=== PATIENT | male | born 1970 | race Caucasian/White ===

== ENCOUNTER 2017-02-27 12:37 | Emergency (ER) | payer MEDICAID ==
[~2017-02-27] VITALS: Ht 188 cm; Wt 93.2 kg
[2017-02-27] MEDS ORDERED: CEPHALEXIN MONOHYDRATE 500 MG CAPSULE PO ONE (14:30)
[2017-02-27] MEDS ORDERED: TraMADol HCL 50 MG TABLET PO ONE (14:30)
[2017-02-27] MEDS ORDERED: SILVER SULFADIAZINE 1% 25 GM CREAM TP ONE (14:30)
[2017-02-27] MEDS ORDERED: SULFAMETHOX/TRIMETH DS 800-160 MG/TABLET PO ONE (14:30)
[2017-02-27] MEDS ORDERED: PERTUSS(ACELL),DIPH,TET VAC/PF 0.5 ML VIAL IM ONE (14:45)
[2017-02-27 15:20] VITALS: BP 122/77
== END 2017-02-27 15:21 | disposition home or self-care (01) ==
LOC: EMS 12:38
DX: T23.221A Burn of second degree of single right finger (nail) except thumb, initial encounter (principal); F17.210 Nicotine dependence, cigarettes, uncomplicated; F19.10 Other psychoactive substance abuse, uncomplicated; Z88.8 Allergy status to other drugs, medicaments and biological substances; X16.XXXA Contact with hot heating appliances, radiators and pipes, initial encounter; Y93.89 Activity, other specified; Y92.89 Other specified places as the place of occurrence of the external cause; Y99.8 Other external cause status
CPT/HCPCS: 16020; 90471; 90715; 99284; 99406; Z7610

== ENCOUNTER 2017-03-02 19:10 | Emergency (ER) | payer MEDICAID ==
[~2017-03-02] VITALS: Ht 188 cm; Wt 95.5 kg
[2017-03-02 19:57] LABS: BASOPHILS % (AUTO) 0.4 % (0.0-2.0); EOSINOPHILS % (AUTO) 3.3 % (1.0-6.0); HEMOGLOBIN 16.6 g/dL (13.5-17.5); LYMPHOCYTES % (AUTO) 25.5 % (22.0-44.0); MEAN CORPUSCULAR HGB CONC 34.6 G/dL (31.0-37.0); MEAN CORPUSCULAR VOLUME 89 fL (80-100); MONOCYTES # (AUTO) 0.5 K/uL (0.1-1.0); MONOCYTES % (AUTO) 5.8 % (2.0-9.0); NEUTROPHILS # (AUTO) 5.1 K/uL (1.8-7.7); PLATELET COUNT (AUTO) 223 K/uL (150-450); RED BLOOD CELL COUNT(AUTO) 5.36 MIL/uL (4.50-5.90); RED CELL DISTRIBUTION WIDTH 13.5 % (11.5-14.5); WHITE BLOOD COUNT (AUTO) 7.8 K/uL (4.5-11.0)
[2017-03-02 20:07] LABS: ANION GAP 8 mmol/L (8-16); CALCIUM, TOTAL 8.8 mg/dL (8.8-10.5); CARBON DIOXIDE 28 mmol/L (22-29); CHLORIDE 104 mmol/L (98-107); CREATININE 1.17 mg/dL (0.60-1.30); GLOMERULAR FILTR. RATE CALC > 60 mL/min (>60); SODIUM SERUM 140 mmol/L (136-145); UREA NITROGEN, BLOOD 12 mg/dL (7-18)
[2017-03-02 20:13] LABS: ALANINE AMINOTRANSFERASE 25 U/L (12-78); ALBUMIN 3.5 g/dL (3.4-5.0); ASPARTATE AMINOTRANSFERASE 14 U/L (15-37); BILIRUBIN,TOTAL 0.4 mg/dL (0.1-1.0); TOTAL PROTEIN, SERUM 7.3 g/dL (6.4-8.2)
[2017-03-02] MEDS ORDERED: LORazepam 2 MG TABLET PO ONE (23:15)
[2017-03-02] MEDS ORDERED: QUEtiapine FUMARATE 100 MG TABLET PO ONE (23:15)
[2017-03-03 05:21] VITALS: BP 126/68
== END 2017-03-03 05:22 | disposition home or self-care (01) ==
LOC: EMS 19:11 → EEVIPCON 19:11 → EMS 03-03 05:22
DX: F22 Delusional disorders (principal); F19.10 Other psychoactive substance abuse, uncomplicated; F17.210 Nicotine dependence, cigarettes, uncomplicated; Z88.8 Allergy status to other drugs, medicaments and biological substances
CPT/HCPCS: 99284; G0480

== ENCOUNTER 2017-03-06 05:03 | Emergency (ER) | payer MEDICAID ==
[~2017-03-06] VITALS: Ht 188 cm; Wt 95.5 kg
[2017-03-06 05:51] LABS: BASOPHILS # (AUTO) 0.07 K/uL (0.00-0.20); EOSINOPHILS # (AUTO) 0.14 K/uL (0.00-0.70); EOSINOPHILS % (AUTO) 2.07 % (1.0-6.0); HEMATOCRIT 51.2 % (41-53); HEMOGLOBIN 17.4 g/dL (13.5-17.5); LYMPHOCYTES # (AUTO) 1.7 K/uL (1.0-4.8); LYMPHOCYTES % (AUTO) 24.9 % (22.0-44.0); MEAN CORPUSCULAR HEMOGLOBIN 30.7 pg (26.0-34.0); MEAN CORPUSCULAR VOLUME 90 fL (80-100); MONOCYTES # (AUTO) 0.4 K/uL (0.1-1.0); MONOCYTES % (AUTO) 5.4 % (2.0-9.0); NEUTROPHILS # (AUTO) 4.4 K/uL (1.8-7.7); NEUTROPHILS % (AUTO) 66.6 % (40.0-70.0); PLATELET COUNT (AUTO) 206 K/uL (150-450); RED BLOOD CELL COUNT(AUTO) 5.69 MIL/uL (4.50-5.90); RED CELL DISTRIBUTION WIDTH 13.5 % (11.5-14.5); WHITE BLOOD COUNT (AUTO) 6.6 K/uL (4.5-11.0)
[2017-03-06 06:07] LABS: ANION GAP 8 mmol/L (8-16); CALCIUM, TOTAL 8.7 mg/dL (8.8-10.5); CARBON DIOXIDE 28 mmol/L (22-29); CHLORIDE 100 mmol/L (98-107); CREATININE 1.14 mg/dL (0.60-1.30); GLOMERULAR FILTR. RATE CALC > 60 mL/min (>60); POTASSIUM 3.7 mmol/L (3.5-5.1); SODIUM SERUM 136 mmol/L (136-145); UREA NITROGEN, BLOOD 10 mg/dL (7-18)
[2017-03-06 06:12] LABS: ALANINE AMINOTRANSFERASE 21 U/L (12-78); ALBUMIN 3.6 g/dL (3.4-5.0); ASPARTATE AMINOTRANSFERASE 14 U/L (15-37); TOTAL PROTEIN, SERUM 7.2 g/dL (6.4-8.2)
[2017-03-06] MEDS ORDERED: HydrOXYzine PAMOATE 50 MG CAPSULE PO ONE (06:30)
[2017-03-06 07:11] VITALS: BP 121/83
== END 2017-03-06 07:13 | disposition home or self-care (01) ==
LOC: EMS 05:03
DX: F41.9 Anxiety disorder, unspecified (principal); F12.10 Cannabis abuse, uncomplicated; F15.10 Other stimulant abuse, uncomplicated; F17.210 Nicotine dependence, cigarettes, uncomplicated; F31.9 Bipolar disorder, unspecified; F20.9 Schizophrenia, unspecified; Z88.8 Allergy status to other drugs, medicaments and biological substances
CPT/HCPCS: 36415; 80053; 80307; 85025; 99284; 99406; G0480

== ENCOUNTER 2017-06-24 16:35 | Emergency (ER) | payer MEDICAID ==
[~2017-06-24] VITALS: Ht 188 cm; Wt 79.5 kg
[2017-06-24 17:35] LABS: BASOPHILS % (AUTO) 0.8 % (0.0-2.0); EOSINOPHILS % (AUTO) 2.4 % (1.0-6.0); HEMATOCRIT 51.6 % (41-53); HEMOGLOBIN 17.6 g/dL (13.5-17.5); LYMPHOCYTES # (AUTO) 1.9 K/uL (1.0-4.8); LYMPHOCYTES % (AUTO) 24.3 % (22.0-44.0); MEAN CORPUSCULAR HEMOGLOBIN 30.1 pg (26.0-34.0); MEAN CORPUSCULAR HGB CONC 34.1 G/dL (31.0-37.0); MEAN CORPUSCULAR VOLUME 88 fL (80-100); MONOCYTES # (AUTO) 0.5 K/uL (0.1-1.0); MONOCYTES % (AUTO) 6.5 % (2.0-9.0); NEUTROPHILS # (AUTO) 5.2 K/uL (1.8-7.7); PLATELET COUNT (AUTO) 179 K/uL (150-450); RED BLOOD CELL COUNT(AUTO) 5.85 MIL/uL (4.50-5.90); RED CELL DISTRIBUTION WIDTH 14.4 % (11.5-14.5)
[2017-06-24 17:50] LABS: ANION GAP 11 mmol/L (8-16); CALCIUM, TOTAL 9.4 mg/dL (8.8-10.5); CARBON DIOXIDE 25 mmol/L (22-29); CHLORIDE 102 mmol/L (98-107); CREATININE 1.12 mg/dL (0.60-1.30); GLOMERULAR FILTR. RATE CALC > 60 mL/min (>60); GLUCOSE,RANDOM 112 mg/dL (70-110); POTASSIUM 3.7 mmol/L (3.5-5.1); SODIUM SERUM 138 mmol/L (136-145); UREA NITROGEN, BLOOD 16 mg/dL (7-18)
[2017-06-24 17:58] LABS: ALANINE AMINOTRANSFERASE 20 U/L (12-78); ALBUMIN 3.9 g/dL (3.4-5.0); ALKALINE PHOSPHATASE 90 U/L (46-116); ASPARTATE AMINOTRANSFERASE 13 U/L (15-37); BILIRUBIN,TOTAL 0.8 mg/dL (0.1-1.0); TOTAL PROTEIN, SERUM 7.4 g/dL (6.4-8.2)
[2017-06-24] MEDS ORDERED: LORazepam 1 MG TABLET PO ONE (20:15)
[2017-06-24 20:39] VITALS: BP 110/70
== END 2017-06-24 20:41 | disposition home or self-care (01) ==
LOC: EMS 16:36
DX: F15.10 Other stimulant abuse, uncomplicated (principal); F41.9 Anxiety disorder, unspecified; F31.9 Bipolar disorder, unspecified; F20.9 Schizophrenia, unspecified; F17.210 Nicotine dependence, cigarettes, uncomplicated; F12.90 Cannabis use, unspecified, uncomplicated; F19.90 Other psychoactive substance use, unspecified, uncomplicated; Z91.14 Patient's other noncompliance with medication regimen; Z88.8 Allergy status to other drugs, medicaments and biological substances
CPT/HCPCS: 36415; 80053; 85025; 99284; 99406; G0480

== ENCOUNTER 2018-03-31 07:37 | Inpatient (IN) | payer MEDICAID ==
[~2018-03-31] VITALS: Ht 188 cm; Wt 85.3 kg
[2018-03-31 08:29] LABS: BASOPHILS % (AUTO) 0.5 % (0.0-2.0); EOSINOPHILS % (AUTO) 1.4 % (1.0-6.0); HEMATOCRIT 47.3 % (41-53); HEMOGLOBIN 16.6 g/dL (13.5-17.5); LYMPHOCYTES # (AUTO) 1.3 K/uL (1.0-4.8); LYMPHOCYTES % (AUTO) 14.5 % (22.0-44.0); MEAN CORPUSCULAR HEMOGLOBIN 31.3 pg (26.0-34.0); MEAN CORPUSCULAR VOLUME 89 fL (80-100); MONOCYTES # (AUTO) 0.6 K/uL (0.1-1.0); NEUTROPHILS # (AUTO) 7.2 K/uL (1.8-7.7); NEUTROPHILS % (AUTO) 77.6 % (40.0-70.0); PLATELET COUNT (AUTO) 280 K/uL (150-450); RED CELL DISTRIBUTION WIDTH 13.6 % (11.5-14.5)
[2018-03-31 08:38] LABS: ANION GAP 10 mmol/L (8-16); CALCIUM, TOTAL 9.7 mg/dL (8.8-10.5); CARBON DIOXIDE 24 mmol/L (22-29); CHLORIDE 107 mmol/L (98-107); CREATININE 1.21 mg/dL (0.60-1.30); GLOMERULAR FILTR. RATE CALC > 60 mL/min (>60); GLUCOSE,RANDOM 114 mg/dL (70-110); SODIUM SERUM 141 mmol/L (136-145); UREA NITROGEN, BLOOD 14 mg/dL (7-18)
[2018-03-31 08:44] LABS: ALANINE AMINOTRANSFERASE 26 U/L (12-78); ALBUMIN 3.7 g/dL (3.4-5.0); ALKALINE PHOSPHATASE 78 U/L (46-116); ASPARTATE AMINOTRANSFERASE 22 U/L (15-37); BILIRUBIN,TOTAL 0.7 mg/dL (0.1-1.0); TOTAL PROTEIN, SERUM 7.3 g/dL (6.4-8.2)
[2018-03-31] MEDS ORDERED: LORazepam 2 MG TABLET PO ONE (08:45)
[2018-03-31] MEDS ORDERED: DiphenhydrAMINE HCL 25 MG CAPSULE PO ONE (08:45)
[2018-03-31] MEDS ORDERED: OLANZapine 5 MG TABLET PO ONE (08:45)
[2018-03-31] MEDS ORDERED: QUEtiapine FUMARATE 100 MG TABLET PO PRN (09:00)
[2018-03-31] MEDS ORDERED: ZOLPIDEM TARTRATE 10 MG TABLET PO PRN (09:00)
[2018-03-31 10:14] LABS: AMPHET/METH SCREEN,URINE NEGATIVE (NEGATIVE); BARBITURATE SCREEN, URINE NEGATIVE (NEGATIVE); BENZODIAZEPINES SCREEN,URINE NEGATIVE (NEGATIVE); CANNABINOID SCREEN,URINE POSITIVE (NEGATIVE); COCAINE SCREEN,URINE NEGATIVE (NEGATIVE); METHADONE SCREEN, URINE NEGATIVE (NEGATIVE); OPIATE SCREEN,URINE NEGATIVE (NEGATIVE)
[2018-03-31 10:15] LABS: PHENCYCLIDINE SCREEN,URINE NEGATIVE (NEGATIVE)
[2018-03-31] MEDS ORDERED: QUEtiapine FUMARATE 25 MG TABLET PO PRN (13:00)
[2018-03-31] MEDS ORDERED: LORazepam 2 MG/ML VIAL ONE (14:34)
[2018-03-31] MEDS ORDERED: DiphenhydrAMINE HCL 50 MG/ML VIAL ONE (14:34)
[2018-03-31] MEDS ORDERED: DiphenhydrAMINE HCL 50 MG/ML VIAL IM ONE (15:00)
[2018-03-31] MEDS ORDERED: FluPHENAZine HCL 2.5 MG/ML INJ IM ONE (15:00)
[2018-03-31] MEDS ORDERED: LORazepam 2 MG/ML VIAL IM ONE (15:00)
[2018-03-31] MEDS: OLANZapine 10 MG RAPDIS TABLET PO SCH (16:44)
[2018-03-31 16:45] VITALS: BP 144/81
[2018-03-31] MEDS: LORazepam 2 MG TABLET PO PRN (16:45)
[2018-03-31] MEDS ORDERED: CloNIDine HCL 0.1 MG TABLET PO PRN (18:15)
[2018-03-31] MEDS ORDERED: NICOTINE 14 MG/24 HOUR PATCH TD PRN (18:15)
[2018-03-31] MEDS ORDERED: DOCUSATE SODIUM 100 MG CAPSULE PO PRN (18:15)
[2018-03-31] MEDS ORDERED: ONDANSETRON HCL 4 MG TABLET PO PRN (18:15)
[2018-03-31] MEDS ORDERED: MAG HYDROX/AL HYDROX/SIMETH ES 30 ML SUSPENSION UDCUP PO PRN (18:15)
[2018-03-31] MEDS ORDERED: ALBUTEROL SULFATE HFA 90 MCG/PUFF 8 GM INHALER IH PRN (18:15)
[2018-03-31] MEDS ORDERED: IBUPROFEN 400 MG TABLET PO PRN (18:15)
[2018-03-31] MEDS ORDERED: ACETAMINOPHEN 325 MG TABLET PO PRN (18:15)
[2018-03-31] MEDS ORDERED: PETROLATUM,WHITE 71 GM JELLY TP PRN (18:15)
[2018-03-31] MEDS ORDERED: GuaiFENesin/D-METHORPHAN [SUGAR-FREE] 200-20MG/10 ML SYRUP UDCUP PO PRN (18:15)
[2018-03-31] MEDS ORDERED: MAGNESIUM HYDROXIDE SUSPENSION 30 ML UDCUP PO PRN (18:15)
[2018-03-31] MEDS ORDERED: LOPERAMIDE HCL 2 MG CAPSULE PO PRN (18:15)
[2018-04-01 03:24] VITALS: BP 138/86
[2018-04-01 08:13] VITALS: BP 110/66
[2018-04-01] MEDS: OLANZapine 10 MG RAPDIS TABLET PO SCH ×2 (08:14→17:00)
[2018-04-01] MEDS: LORazepam 2 MG TABLET PO PRN ×2 (08:14→16:23)
[2018-04-01 16:00] VITALS: BP 112/65
[2018-04-02 05:27] VITALS: BP 118/72
[2018-04-02 08:09] VITALS: BP 112/65
[2018-04-02] MEDS: OLANZapine 10 MG RAPDIS TABLET PO SCH ×2 (09:00→16:43)
[2018-04-02] MEDS: LORazepam 2 MG TABLET PO PRN ×2 (09:06→16:42)
[2018-04-02] MEDS: BENZTROPINE MESYLATE 1 MG TABLET PO SCH ×2 (09:48→16:42)
[2018-04-02 16:00] VITALS: BP 108/64
[2018-04-03 04:10] VITALS: BP 116/62
[2018-04-03 07:59] VITALS: BP 155/68
[2018-04-03 08:10] LABS: HEMOGLOBIN A1C 5.6 % (4.5-6.2)
[2018-04-03 08:12] VITALS: BP 155/68
[2018-04-03 08:27] LABS: CHOL/HDL RATIO 3.7 (4.2-7.3); FREE T4 (FREE THYROXINE) 0.85 ng/dL (0.76-1.46); THYROID STIMULATING HORMONE 1.97 uIU/mL (0.36-3.74)
[2018-04-03] MEDS: OLANZapine 10 MG RAPDIS TABLET PO SCH ×2 (08:34→17:00)
[2018-04-03] MEDS: LORazepam 2 MG TABLET PO PRN ×2 (08:35→16:42)
[2018-04-03] MEDS: BENZTROPINE MESYLATE 1 MG TABLET PO SCH ×2 (08:43→16:42)
[2018-04-03 13:04] VITALS: BP 115/67
[2018-04-03 16:00] VITALS: BP 138/88
[2018-04-04 06:17] VITALS: BP 132/78
[2018-04-04 08:09] VITALS: BP 140/85
[2018-04-04] MEDS: OLANZapine 10 MG RAPDIS TABLET PO SCH ×2 (08:41→16:22)
[2018-04-04] MEDS: BENZTROPINE MESYLATE 1 MG TABLET PO SCH ×2 (08:42→16:22)
[2018-04-04] MEDS: LORazepam 2 MG TABLET PO PRN ×2 (16:22→21:32)
[2018-04-04 17:01] VITALS: BP 135/81
[2018-04-04] MEDS ORDERED: ZIPRASIDONE MESYLATE 20 MG/VIAL IM ONE ×2 (22:58→23:00)
[2018-04-04] MEDS ORDERED: DiphenhydrAMINE HCL 50 MG/ML VIAL ONE (22:58)
[2018-04-04] MEDS ORDERED: LORazepam 2 MG/ML VIAL IM ONE (23:00)
[2018-04-04] MEDS ORDERED: DiphenhydrAMINE HCL 50 MG/ML VIAL IM ONE (23:00)
[2018-04-05 06:06] VITALS: BP 116/88
[2018-04-05] MEDS: OLANZapine 10 MG RAPDIS TABLET PO SCH ×2 (09:00→16:22)
[2018-04-05] MEDS: BENZTROPINE MESYLATE 1 MG TABLET PO SCH ×2 (09:00→16:22)
[2018-04-05 09:25] VITALS: BP 109/61
[2018-04-05] MEDS ORDERED: HALOPERIDOL LACTATE 5 MG/ML VIAL IM ONE (09:30)
[2018-04-05] MEDS ORDERED: ZIPRASIDONE MESYLATE 20 MG/VIAL IM ONE (09:30)
[2018-04-05] MEDS ORDERED: LORazepam 2 MG/ML VIAL IM ONE (09:30)
[2018-04-05 16:25] VITALS: BP 119/69
[2018-04-06 04:55] VITALS: BP 115/72
[2018-04-06 08:09] VITALS: BP 136/76
[2018-04-06] MEDS: OLANZapine 10 MG RAPDIS TABLET PO SCH ×3 (09:00→16:49)
[2018-04-06] MEDS: BENZTROPINE MESYLATE 1 MG TABLET PO SCH ×3 (09:00→16:49)
[2018-04-06] MEDS ORDERED: ZIPRASIDONE MESYLATE 20 MG/VIAL IM ONE ×2 (10:15→10:21)
[2018-04-06] MEDS ORDERED: DiphenhydrAMINE HCL 50 MG/ML VIAL IM ONE (10:15)
[2018-04-06] MEDS ORDERED: LORazepam 2 MG/ML VIAL IM ONE (10:15)
[2018-04-06 11:15] VITALS: BP 115/82
[2018-04-06 16:29] VITALS: BP 109/61
[2018-04-06] MEDS: LORazepam 2 MG TABLET PO PRN (16:49)
[2018-04-07 00:21] VITALS: BP 139/86
[2018-04-07 08:08] VITALS: BP 136/90
[2018-04-07] MEDS: BENZTROPINE MESYLATE 1 MG TABLET PO SCH ×2 (08:58→16:41)
[2018-04-07] MEDS: OLANZapine 10 MG RAPDIS TABLET PO SCH ×2 (08:58→16:41)
[2018-04-07] MEDS: LORazepam 2 MG TABLET PO PRN (16:41)
[2018-04-07 16:52] VITALS: BP 124/74
[2018-04-08 00:53] VITALS: BP 125/80
[2018-04-08 08:09] VITALS: BP 111/63
[2018-04-08] MEDS: OLANZapine 10 MG RAPDIS TABLET PO SCH ×2 (08:29→16:35)
[2018-04-08] MEDS: BENZTROPINE MESYLATE 1 MG TABLET PO SCH ×2 (08:29→16:34)
[2018-04-08] MEDS: LORazepam 2 MG TABLET PO PRN ×2 (10:57→16:34)
[2018-04-08 16:43] VITALS: BP 124/73
[2018-04-09 02:44] VITALS: BP 123/61
[2018-04-09 08:21] VITALS: BP 116/83
[2018-04-09] MEDS: BENZTROPINE MESYLATE 1 MG TABLET PO SCH ×2 (09:21→16:57)
[2018-04-09] MEDS: OLANZapine 10 MG RAPDIS TABLET PO SCH ×2 (09:21→16:57)
[2018-04-09] MEDS: LORazepam 2 MG TABLET PO PRN ×2 (09:22→16:58)
[2018-04-09 16:10] VITALS: BP 109/77
[2018-04-10 02:09] VITALS: BP 112/78
[2018-04-10 08:08] VITALS: BP 130/82
[2018-04-10] MEDS: BENZTROPINE MESYLATE 1 MG TABLET PO SCH (08:47)
[2018-04-10] MEDS: OLANZapine 10 MG RAPDIS TABLET PO SCH (08:47)
[2018-04-10] MEDS: LORazepam 2 MG TABLET PO PRN (08:48)
[2018-04-10] MEDS ORDERED: OLAN10TA3 PO (13:02)
[2018-04-10] MEDS ORDERED: BENZ1TAB10 PO (13:02)
== END 2018-04-10 14:40 | disposition home or self-care (01) | DRG 750 ==
LOC: EMS 07:38 → B3A 12:44
PROVIDERS: ADMIT Psychiatry & Neurology Child & Adolescent Psychiatry; ATTEND Psychiatry & Neurology Child & Adolescent Psychiatry
DX: F20.0 Paranoid schizophrenia (principal); Z91.19 Patient's noncompliance with other medical treatment and regimen; F10.10 Alcohol abuse, uncomplicated; F32.9 Major depressive disorder, single episode, unspecified; F41.9 Anxiety disorder, unspecified; G47.00 Insomnia, unspecified; F17.200 Nicotine dependence, unspecified, uncomplicated; F12.90 Cannabis use, unspecified, uncomplicated; F15.10 Other stimulant abuse, uncomplicated; Z71.6 Tobacco abuse counseling; Z71.51 Drug abuse counseling and surveillance of drug abuser
CPT/HCPCS: 83036; 84439; 84443; 96372; G0480; J1200; J2060; J3486; J3490

== ENCOUNTER 2018-10-02 21:33 | Emergency (ER) | payer MEDICAID ==
[~2018-10-02] VITALS: Ht 190.5 cm; Wt 109.1 kg
[~2018-10-02 21:33] MED LIST: BENZ1TAB10 PO; OLAN10TA3 PO
[2018-10-02] MEDS ORDERED: HydrOXYzine PAMOATE 25 MG CAPSULE PO ONE (23:30)
[2018-10-02 23:58] LABS: AMPHET/METH SCREEN,URINE NEGATIVE (NEGATIVE); BARBITURATE SCREEN, URINE NEGATIVE (NEGATIVE); BENZODIAZEPINES SCREEN,URINE NEGATIVE (NEGATIVE); CANNABINOID SCREEN,URINE NEGATIVE (NEGATIVE); COCAINE SCREEN,URINE NEGATIVE (NEGATIVE); METHADONE SCREEN, URINE NEGATIVE (NEGATIVE); OPIATE SCREEN,URINE NEGATIVE (NEGATIVE); PHENCYCLIDINE SCREEN,URINE NEGATIVE (NEGATIVE)
[2018-10-03 00:01] VITALS: BP 129/90
== END 2018-10-03 00:20 | disposition home or self-care (01) ==
LOC: EMS 21:34
DX: F41.9 Anxiety disorder, unspecified (principal); F31.9 Bipolar disorder, unspecified; F20.9 Schizophrenia, unspecified; F17.210 Nicotine dependence, cigarettes, uncomplicated; Z88.8 Allergy status to other drugs, medicaments and biological substances; Z79.899 Other long term (current) drug therapy
CPT/HCPCS: 93005

== ENCOUNTER 2018-11-20 08:39 | Emergency (ER) | payer MEDICAID ==
[~2018-11-20] VITALS: Ht 188 cm; Wt 95.5 kg
[2018-11-20 08:43] VITALS: BP 138/55
[2018-11-20] MEDS ORDERED: LORA1TAB3 PO (08:45)
[2018-11-20] MEDS ORDERED: LORazepam 2 MG TABLET PO ONE (10:15)
== END 2018-11-20 11:24 | disposition left against medical advice (07) ==
LOC: EMS 08:40
DX: F41.9 Anxiety disorder, unspecified (principal); F17.210 Nicotine dependence, cigarettes, uncomplicated; F31.9 Bipolar disorder, unspecified; F20.9 Schizophrenia, unspecified; Z88.8 Allergy status to other drugs, medicaments and biological substances
CPT/HCPCS: 99406

== ENCOUNTER 2018-11-25 11:09 | Emergency (ER) | payer MEDICAID ==
[~2018-11-25] VITALS: Ht 190.5 cm; Wt 90.9 kg
[~2018-11-25 11:09] MED LIST changes: -BENZ1TAB10 PO; +LORA1TAB3 PO; -OLAN10TA3 PO
[2018-11-25] MEDS ORDERED: LORazepam 2 MG TABLET PO ONE (11:45)
[2018-11-25 13:24] VITALS: BP 128/71
== END 2018-11-25 13:26 | disposition home or self-care (01) ==
LOC: EMS 11:12
DX: F41.9 Anxiety disorder, unspecified (principal); Z76.0 Encounter for issue of repeat prescription; F31.9 Bipolar disorder, unspecified; F20.9 Schizophrenia, unspecified; F17.210 Nicotine dependence, cigarettes, uncomplicated; Z88.8 Allergy status to other drugs, medicaments and biological substances

== ENCOUNTER 2018-12-08 05:48 | Emergency (ER) | payer MEDICAID ==
[2018-12-08 06:37] LABS: BASOPHILS % (AUTO) 0.7 % (0.0-2.0); EOSINOPHILS % (AUTO) 5.6 % (1.0-6.0); HEMATOCRIT 48.6 % (41-53); HEMOGLOBIN 16.1 g/dL (13.5-17.5); LYMPHOCYTES # (AUTO) 1.5 K/uL (1.0-4.8); LYMPHOCYTES % (AUTO) 26.1 % (22.0-44.0); MEAN CORPUSCULAR HEMOGLOBIN 30.7 pg (26.0-34.0); MEAN CORPUSCULAR HGB CONC 33.2 G/dL (31.0-37.0); MEAN CORPUSCULAR VOLUME 93 fL (80-100); MONOCYTES # (AUTO) 0.3 K/uL (0.1-1.0); MONOCYTES % (AUTO) 5.6 % (2.0-9.0); NEUTROPHILS # (AUTO) 3.6 K/uL (1.8-7.7); PLATELET COUNT (AUTO) 157 K/uL (150-450); RED BLOOD CELL COUNT(AUTO) 5.24 MIL/uL (4.50-5.90); RED CELL DISTRIBUTION WIDTH 13.5 % (11.5-14.5)
[2018-12-08 06:45] LABS: ANION GAP 10 mmol/L (8-16); CALCIUM, TOTAL 8.9 mg/dL (8.8-10.5); CARBON DIOXIDE 26 mmol/L (22-29); CHLORIDE 106 mmol/L (98-107); CREATININE 1.39 mg/dL (0.60-1.30); GLOMERULAR FILTR. RATE CALC 55 mL/min (>60); GLUCOSE,RANDOM 114 mg/dL (70-110); POTASSIUM 3.8 mmol/L (3.5-5.1); SODIUM SERUM 142 mmol/L (136-145); UREA NITROGEN, BLOOD 15 mg/dL (7-18)
[2018-12-08 06:51] LABS: ALANINE AMINOTRANSFERASE 19 U/L (12-78); ALBUMIN 3.7 g/dL (3.4-5.0); ALKALINE PHOSPHATASE 62 U/L (46-116); ASPARTATE AMINOTRANSFERASE 14 U/L (15-37); BILIRUBIN,TOTAL 0.7 mg/dL (0.1-1.0); TOTAL PROTEIN, SERUM 6.6 g/dL (6.4-8.2)
[2018-12-08] MEDS ORDERED: HydrOXYzine HCL 25 MG TABLET PO ONE (07:30)
[2018-12-08 07:51] LABS: AMPHET/METH SCREEN,URINE NEGATIVE (NEGATIVE); BARBITURATE SCREEN, URINE NEGATIVE (NEGATIVE); BENZODIAZEPINES SCREEN,URINE NEGATIVE (NEGATIVE); CANNABINOID SCREEN,URINE NEGATIVE (NEGATIVE); COCAINE SCREEN,URINE NEGATIVE (NEGATIVE); METHADONE SCREEN, URINE NEGATIVE (NEGATIVE); OPIATE SCREEN,URINE NEGATIVE (NEGATIVE)
[2018-12-08 07:52] LABS: PHENCYCLIDINE SCREEN,URINE NEGATIVE (NEGATIVE)
[2018-12-08 08:00] VITALS: BP 138/81
== END 2018-12-08 08:12 | disposition home or self-care (01) ==
LOC: EMS 05:48
DX: F41.9 Anxiety disorder, unspecified (principal); F17.210 Nicotine dependence, cigarettes, uncomplicated; F12.90 Cannabis use, unspecified, uncomplicated; F31.9 Bipolar disorder, unspecified; F20.9 Schizophrenia, unspecified; Z88.8 Allergy status to other drugs, medicaments and biological substances
CPT/HCPCS: 36415; 80053; 80307; 85025; 93005; 99284; G0480

== ENCOUNTER 2018-12-26 03:12 | Emergency (ER) | payer MEDICAID ==
[~2018-12-26] VITALS: Ht 188 cm; Wt 106.8 kg
[2018-12-26] MEDS ORDERED: HydrOXYzine PAMOATE 25 MG CAPSULE PO ONE (04:15)
[2018-12-26 04:45] VITALS: BP 118/71
== END 2018-12-26 05:10 | disposition home or self-care (01) ==
LOC: EMS 03:12
DX: F41.9 Anxiety disorder, unspecified (principal); F31.9 Bipolar disorder, unspecified; F20.9 Schizophrenia, unspecified; F17.210 Nicotine dependence, cigarettes, uncomplicated; Z79.899 Other long term (current) drug therapy; Z88.8 Allergy status to other drugs, medicaments and biological substances; Z98.890 Other specified postprocedural states

== ENCOUNTER 2019-01-03 00:09 | Emergency (ER) | payer MEDICAID ==
[~2019-01-03] VITALS: Ht 188 cm; Wt 102.3 kg
[~2019-01-03 00:09] MED LIST changes: +LORA-1000 PO; -LORA1TAB3 PO
[2019-01-03 00:17] VITALS: BP 131/75
[2019-01-03] MEDS ORDERED: HYDR-4031 PO (00:21)
== END 2019-01-03 05:54 | disposition left against medical advice (07) ==
LOC: EMS 00:12
DX: F41.9 Anxiety disorder, unspecified (principal); Z53.21 Procedure and treatment not carried out due to patient leaving prior to being seen by health care provider

== ENCOUNTER 2019-05-04 03:15 | Emergency (ER) | payer MEDICAID ==
[~2019-05-04] VITALS: Ht 188 cm; Wt 100.0 kg
[~2019-05-04 03:15] MED LIST changes: +HYDR-4031 PO
[2019-05-04 04:50] VITALS: BP 129/85
== END 2019-05-04 05:01 | disposition home or self-care (01) ==
LOC: EMS 03:15
DX: F20.0 Paranoid schizophrenia (principal); F41.9 Anxiety disorder, unspecified; F31.9 Bipolar disorder, unspecified; I10 Essential (primary) hypertension; F17.210 Nicotine dependence, cigarettes, uncomplicated; Z88.8 Allergy status to other drugs, medicaments and biological substances
CPT/HCPCS: 99406

== ENCOUNTER 2019-05-24 05:45 | Emergency (ER) | payer MEDICAID ==
[~2019-05-24] VITALS: Ht 188 cm; Wt 97.7 kg
[2019-05-24] MEDS ORDERED: LORazepam 1 MG TABLET PO ONE (06:45)
[2019-05-24 07:15] VITALS: BP 119/84
== END 2019-05-24 07:20 | disposition home or self-care (01) ==
LOC: EMS 05:45
DX: F41.9 Anxiety disorder, unspecified (principal); K02.9 Dental caries, unspecified; I10 Essential (primary) hypertension; F17.210 Nicotine dependence, cigarettes, uncomplicated; F31.9 Bipolar disorder, unspecified; F20.9 Schizophrenia, unspecified; Z88.8 Allergy status to other drugs, medicaments and biological substances; Z98.890 Other specified postprocedural states
CPT/HCPCS: 99406

== ENCOUNTER 2019-07-06 09:48 | Emergency (ER) | payer MEDICAID ==
[~2019-07-06] VITALS: Ht 188 cm; Wt 86.0 kg
[2019-07-06 09:51] VITALS: BP 132/81
== END 2019-07-06 10:28 | disposition left against medical advice (07) ==
LOC: EMS 09:52
DX: F41.9 Anxiety disorder, unspecified (principal); Z53.21 Procedure and treatment not carried out due to patient leaving prior to being seen by health care provider